=== PATIENT | female | born 1970 | race African-American/Black ===

== ENCOUNTER 2018-08-26 19:26 | Observation (INO) | payer BC ==
[2018-08-26 20:09] LABS: #Basophils 0.1 thou/uL (0.0-0.2); #Eosinphils 0.5 thou/uL (0.0-0.7); #Lymphocytes 2.6 thou/uL (1.20-3.40); #Monocytes 0.7 thou/uL (0.11-0.59); #Neutrophils 8.6 thou/uL (1.40-6.50); %Basophils 0.6 % (0.0-1.0); %Eosinophils 4.1 % (0.0-10.0); %Lymphocytes 20.5 % (21.0-51.0); %Monocytes 5.6 % (0.0-10.0); %Neutrophils 69.2 % (42.0-75.0); Hemoglobin 13.4 g/dL (12.0-16.0); Mean Corpuscular HGB CONC 33.1 g/dL (32.0-36.0); Mean Corpuscular Hemoglobin 28.6 pg (27.0-31.0); Mean Corpuscular Volume 86.3 fL (78.0-98.0); Mean Platelet Volume 9.2 fL (7.4-10.4); Platelet Count 364 thou/uL (130-400); RBC Distribution Width 12.3 % (11.5-14.5); Red Blood Cell (RBC) Count 4.68 mill/uL (4.20-5.40); White Blood Cell (WBC) Count 12.4 thou/uL (4.8-10.8)
[2018-08-26 20:30] LABS: ALT (SGPT) 27 U/L (8-55); AST (SGOT) 20 U/L (5-34); Albumin 4.3 g/dL (3.5-5.0); Alkaline Phosphatase 102 U/L (40-150); Anion Gap 9 mmol/L (10-20); BUN (Urea Nitrogen) 10 mg/dL (7.0-18.7); Bilirubin, Total 0.3 mg/dL (0.2-1.2); Calc. Creatinine Clearance 0 mL/min (70-130); Calcium 9.2 mg/dL (7.8-10.44); Carbon Dioxide 26 mmol/L (22-29); Chloride 104 mmol/L (98-107); Estimated GFR-MDRD 80; Globulin 3.6 g/dL (2.4-3.5); Glucose 92 mg/dL (70-105); Lipase 15 U/L (8-78); Potassium 4.2 mmol/L (3.5-5.1); Protein, Total 7.9 g/dL (6.0-8.3); Sodium 135 mmol/L (136-145)
--- NOTE | 2018-08-26 21:04 | ULT ---
RIGHT UPPER QUADRANT ULTRASOUND 08/26/18 COMPARISON: None. HISTORY: Right upper quadrant pain. TECHNIQUE: Multiplanar ovalle scale sonographic imaging of the right upper quadrant provided. FINDINGS: Imaged pancreas unremarkable. The distal body and tail are obscured by bowel gas. No focal liver lesi on. Hepatic parenchyma is heterogeneous and echogenic, evidence of steatosis. Right kidney measures 10 cm in craniocaudal dimension and demonstrates no stone, hydronephrosis, or m ass lesion. Common bile duct measures 6 mm, upper limits of normal. There is extensive shadowing in the region of the gallbladder fossa suggesting a gallbladder filled with stones. The manager ecommerce reports a positive Kay's sign. It is difficult to accurately measure the thickness of the gallbladder wall given a wall echo shadow sign. The gallbladder may be mildly thickened. IMPRESSION: Positive Kay's sign with a gallbladder filled with stones. Findings are suspicious for acute antoinette cystitis in the proper clinical setting. POS: [facility]
[2018-08-26] MEDS ORDERED: Piperacillin/Tazobactam 3.375 GM VIAL ONE (21:12)
[2018-08-26] MEDS ORDERED: Ondansetron PF 4 MG/2 ML Vial ONE (21:43)
[2018-08-26] MEDS ORDERED: Morphine 4 MG/ML VIAL ONE (21:43)
[2018-08-26] MEDS ORDERED: Ondansetron ODT 4 MG TAB SL PRN (22:48)
[2018-08-26] MEDS ORDERED: Ondansetron PF 4 MG/2 ML Vial IVP PRN (22:48)
[2018-08-26] MEDS ORDERED: Morphine 2 MG/ML SYRINGE SLOW IVP PRN (22:58)
[2018-08-26] MEDS ORDERED: Morphine 10 MG/ML VIAL SLOW IVP PRN (22:59)
[2018-08-26] MEDS: D5 1/2 NS w/20 mEq KCL 1,000 ML IV SCH (23:20)
[2018-08-27] MEDS: Piperacillin/Tazobactam 3.375 GM in Sodium Chloride 0.9% 100 ML IVPB SCH ×2 (03:05→09:46)
[2018-08-27] MEDS: Morphine 10 MG/ML VIAL SLOW IVP PRN ×2 (03:05→07:29)
[2018-08-27] MEDS: D5 1/2 NS w/20 mEq KCL 1,000 ML IV SCH (07:26)
[2018-08-27] MEDS ORDERED: Clindamycin/D5W 900 MG in Premix Bag 1 BAG IVPB SCH (10:15)
[2018-08-27] MEDS ORDERED: Bupivacaine/Epinephrine 0.25% 30 ML VIAL ONE (11:55)
[2018-08-27] MEDS ORDERED: Iothalamate Meglumine 60% 50 ML VIAL FS ONE (11:55)
[2018-08-27] MEDS ORDERED: Fentanyl 100 MCG/2 ML VIAL ONE (12:01)
[2018-08-27] MEDS ORDERED: Ondansetron PF 4 MG/2 ML Vial IVP PRN (13:27)
[2018-08-27] MEDS ORDERED: Dextrose 50% Abboject 50 ML SYRINGE SLOW IVP PRN (13:27)
[2018-08-27] MEDS ORDERED: Dextrose 5% in Water 1,000 ML IV PRN (13:27)
[2018-08-27] MEDS ORDERED: hydrALAZINE 20 MG/ML VIAL SLOW IVP PRN (13:27)
[2018-08-27] MEDS ORDERED: HYDROcodone/Acetaminophen 10/325 mg Tablet PO PRN (13:27)
[2018-08-27] MEDS ORDERED: Mag-Al 1200 mg/1200 mg/30 ML UDCUP PO PRN (13:27)
[2018-08-27] MEDS ORDERED: Calcium Carbonate 500 MG ChewTAB PO PRN (13:27)
[2018-08-27] MEDS ORDERED: Promethazine HCl 25 MG/ML VIAL IM PRN (13:27)
[2018-08-27] MEDS ORDERED: D5 1/2 NS w/20 mEq KCL 1,000 ML IV SCH (13:30)
[2018-08-27] MEDS ORDERED: Morphine 2 MG/ML SYRINGE SLOW IVP PRN ×2 (13:33)
--- NOTE | 2018-08-27 14:24 | RAD ---
OPERATIVE CHOLANGIOGRAM 2 VIEWS: HISTORY: Intraoperative films. FINDINGS: These films show filling of a minimally dilated common bile duct with emptying into the duodenum. No filling defect seen. IMPRESSION: No evidence of any filling defect. POS: [facility]
[2018-08-27] MEDS ORDERED: Ampicillin 2 GM in Sodium Chloride 0.9% 100 ML IVPB SCH (16:00)
[2018-08-27] MEDS ORDERED: Ketorolac Tromethamine 30 MG/ML VIAL ONE (16:03)
[2018-08-27] MEDS ORDERED: PROPOFOL 200 MG/20 ML VIAL ONE (16:03)
[2018-08-27] MEDS ORDERED: Lidocaine 1% PF 5 ML VIAL ONE (16:03)
[2018-08-27] MEDS ORDERED: Ondansetron PF 4 MG/2 ML Vial ONE (16:03)
[2018-08-27] MEDS ORDERED: Dexamethasone 20 MG/5 ML VIAL ONE (16:03)
[2018-08-27] MEDS ORDERED: PHENYLEPHRINE-NS 100 MCG/ML 10 ML SYRINGE ONE (16:03)
[2018-08-27] MEDS ORDERED: Glycopyrrolate 0.2 MG/ML 5 ML SYRINGE ONE (16:03)
[2018-08-27] MEDS: HYDROcodone/Acetaminophen 10/325 mg Tablet PO PRN ×2 (16:14→17:03)
--- NOTE | 2018-08-27 16:27 | HP ---
CHIEF COMPLAINT: Right upper quadrant abdominal pain. HISTORY OF PRESENT ILLNESS: This is a 48-year-old female, who has had frequent episodes of epigastric pain since December, worse with eating, associated with nausea, no fever, who had a much more severe episode this week and went to the emergency room, was discharged, came back again. They did a scan that shows gallstones and a positive Kay sign. PAST MEDICAL HISTORY: Hypertension. PAST SURGICAL HISTORY: Hysterectomy done, open. MEDICATIONS: She takes Norvasc daily, the dose is unknown. ALLERGIES: SHE HAS NO KNOWN DRUG ALLERGIES. SOCIAL HISTORY: She is . She works as a caregiver. No tobacco or alcohol. FAMILY HISTORY: Diabetes and hypertension. PHYSICAL EXAMINATION: VITAL SIGNS: Temperature 97.8, pulse 69, and blood pressure 125/73. GENERAL: Well-developed, well-nourished female, in no apparent distress. HEENT: No jaundice. LUNGS: Clear. HEART: Regular rate and rhythm. ABDOMEN: Soft, nondistended. She is tender in the right upper quadrant with plus/minus Kay sign. EXTREMITIES: Unremarkable. LABORATORY DATA: Her white count is 12.4, hemoglobin 13, hematocrit 40, and platelet count of 364. Electrolytes, sodium a little low at 135. LFTs are normal. Lipase is 15. IMAGING STUDIES: She had an ultrasound showing multiple cholelithiasis and a sonographic Kay sign. Her common duct is 6 mm. ASSESSMENT: Acute cholecystitis. PLAN: Laparoscopic cholecystectomy. CONSENT: I have discussed the planned procedure as well as the risk of bleeding, infection, injury to bile duct, injury to bowel, need to open, she understands and gives informed consent. Job ID: [id number]
[2018-08-27 16:48] VITALS: TEMP 97.6
[2018-08-27 17:10] VITALS: BP 167/85
[2018-08-27] MEDS ORDERED: Ketorolac Tromethamine 30 MG/ML VIAL IVP SCH (18:00)
[2018-08-27] MEDS ORDERED: Famotidine 20 MG TAB PO SCH (21:00)
[2018-08-27] MEDS ORDERED: Famotidine/PF 20 mg/2ml Vial SLOW IVP SCH (21:00)
[2018-08-28] MEDS ORDERED: Enoxaparin Sodium 40 MG/0.4 ML SYRINGE SC SCH (09:00)
--- NOTE | 2018-08-30 09:08 | OP ---
DATE OF PROCEDURE: 08/27/2018 PREOPERATIVE DIAGNOSIS: Acute cholecystitis. PROCEDURE PERFORMED: Laparoscopic cholecystectomy with intraoperative cholangiogram. INDICATIONS: 48-year-old female who has been having severe right upper quadrant pain; multiple visits to the ER. She had an ultrasound last night showing gallbladder full of stones, a generous common duct and positive sonographic Kay sign. FINDINGS: Some gallbladder wall thickening. The cystic duct was dilated and there were stones within the cystic duct, which were able to be milked out, but the cholangiogram showed no filling defects and free flow into the duodenum. DESCRIPTION OF PROCEDURE: After informed consent was obtained, the patient was taken to the operating room, given general endotracheal anesthesia, and placed in the supine position. The abdomen was prepped and draped in the usual fashion. Local anesthesia was infiltrated in subcutaneous and deep, and a subumbilical incision was performed. Subcu divided sharply. The fascia was grasped and 2 stay sutures of 0 Vicryl was placed each side of midline. Midline incised. Digital palpation revealed no local adhesions. A blunt 10/12 mm trocar inserted. Pneumoperitoneum was carried to a pressure of 15 mmHg. Under direct vision, three 5-mm ports were placed subcostally. The gallbladder grasped, advanced superiorly, the peritoneum lysed distally to expose the cystic duct and artery. The cystic duct was enlarged. Some of the stones were able to be milked back into the gallbladder. A clip was placed at the base of the gallbladder, an incision was made in the cystic duct and there were 2 other stones that were still there. I was able to milk them out of the cystic duct. Then, inserted a cholangiocatheter. Intraoperative cholangiogram showed no filling defects, free flow into the duodenum. The cystic duct was triply ligated with hemoclips and divided. The artery was triple ligated with hemoclips and divided. The gallbladder was removed from its fossa utilizing electrocautery, removed from the abdomen through the umbilical port. Hemostasis assured. Trocars and retractors were removed. The fascia was closed with interrupted 0 Vicryl suture. The skin was closed with interrupted 4-0 Rapide. Dermabond was applied. The patient tolerated the procedure well and transferred to Recovery in good condition. Sponge and needle counts were verified and correct x2. Job ID: [id number]
--- NOTE | 2018-08-30 15:14 | DIS ---
DATE OF ADMISSION: 08/26/2018 DATE OF DISCHARGE: 08/27/2018 DISCHARGE DIAGNOSIS: Acute cholecystitis. PROCEDURES DURING ADMISSION: Laparoscopic cholecystectomy. HOSPITAL COURSE: The patient was admitted, given IV antibiotics, IV fluids, taken to the operating room where she underwent a laparoscopic cholecystectomy with cholangiogram. Postoperatively, she did well. She was discharged home in good condition on hydrocodone and Zofran. She will follow up with me in two weeks. Job ID: [id number]
== END 2018-08-27 17:53 | disposition home or self-care (01) ==
LOC: ERS 19:26 → 3SE 22:19
PROVIDERS: ADMIT Surgery; ATTEND Surgery
PROC: 0FT44ZZ Resection of Gallbladder, Percutaneous Endoscopic Approach (ICD-10-PCS; principal; 2018-08-26)
PROC: BF131ZZ Fluoroscopy of Gallbladder and Bile Ducts using Low Osmolar Contrast (ICD-10-PCS; 2018-08-26)
DX: K80.12 Calculus of gallbladder with acute and chronic cholecystitis without obstruction (principal); I10 Essential (primary) hypertension; Z88.5 Allergy status to narcotic agent; Z79.899 Other long term (current) drug therapy
CPT/HCPCS: 47532; 76705; 80053; 83690; 85025; 88304; 96361; 96365; 96366; 96372; 96375; 96376; G0378; J0290; J0360; J1100; J1885; J2001; J2270; J2405; J2543; J2704; J3010; J3490; J7050; Q9961